=== PATIENT | male | born 2000 | race Caucasian/White ===

== ENCOUNTER 2025-04-10 17:47 | Emergency (ER) | payer OTHER ==
--- NOTE | 2025-04-10 17:53 | ERPHSYRPT ---
- History of Present Illness Time Seen by Provider: 04/10/25 17:52 Source: patient, family Exam Limitations: no limitations Physician History: This is a 24-year-old white male patient arrives by private vehicle and does not have a primary care provider with right foot injury that occurred prior to arrival. Patient is at work and using a heavy electric power mayelin when it hit the top of his right foot causing significant pain, swelling and bruising on the dorsal aspect. Method of Injury: direct blow Occurred: just prior to arrival Quality: aching, throbbing Severity of Pain-Max: moderate Severity of Pain-Current: moderate Lower Extremities Pain: foot: right (Dorsal aspect) Associated Symptoms: other (To bear weight) Travel Risk - International Travel Have you traveled outside of the country in past 3 weeks: No - Emerging Infectious Disease Are you exhibiting symptoms associated with any current EIDs: No - Review of Systems Constitutional: No Symptoms Eyes: No Symptoms Ears, Nose, & Throat: No Symptoms Respiratory: No Symptoms Cardiac: No Symptoms Abdominal/Gastrointestinal: No Symptoms Genitourinary Symptoms: No Symptoms Musculoskeletal: Injury (Dorsal aspect right foot) Skin: No Symptoms Neurological: No Symptoms Psychological: No Symptoms Endocrine: No Symptoms Hematologic/Lymphatic: No Symptoms Immunological/Allergic: No Symptoms All Other Systems: Reviewed and Negative - Past Medical History Pertinent Past Medical History: No - Nursing Vital Signs Nursing Vital Signs: Initial Vital Signs Temperature 97.0 F 04/10/25 17:57 Pulse Rate 74 04/10/25 17:57 Respiratory Rate 18 04/10/25 17:57 Blood Pressure 162/86 04/10/25 17:57 O2 Sat by Pulse Oximetry 99 04/10/25 17:57 Pain Scale Pain Intensity 7 - Physical Exam General Appearance: no apparent distress, alert, anxiety Eyes, Ears, Nose, Throat Exam: normal ENT inspection, moist mucous membranes Neck Exam: normal inspection, non-tender, supple, full range of motion Cardiovascular/Respiratory Exam: chest non-tender, no respiratory distress Gastrointestinal/Abdominal Exam: non-tender Back Exam: normal inspection, normal range of motion, No CVA tenderness, No vertebral tenderness Hips Exam: bilateral: non-tender, normal inspection, normal range of motion, no evidence of injury Legs Exam: bilateral leg: non-tender, normal inspection, normal range of motion, no evidence of injury Knees Exam: bilateral knee: non-tender, normal inspection, normal range of motion, no evidence of injury Ankle Exam: bilateral ankle: non-tender, normal inspection, normal range of motion, no evidence of injury Foot Exam: right foot: bone tenderness (Dorsal aspect), ecchymosis (Dorsal aspect), soft tissue tenderness (Dorsal aspect), swelling (Dorsal aspect), left foot: non-tender, normal inspection, normal range of motion, no evidence of injury Neuro/Tendon Exam: normal sensation, normal motor functions, normal tendon functions, no evidence tendon injury Mental Status Exam: alert, oriented x 3, cooperative Skin Exam: normal color, warm, dry SpO2 Interpretation: normal O2 Delivery: Room Air - Course Nursing assessment & vital signs reviewed: Yes Ordered Tests: Active Orders 24 hr Category Date Time Status Mak Bandage Application -[facility] STAT Care 04/10/25 18:17 Ordered Crutches STAT Care 04/10/25 18:17 Ordered FOOT (MINIMUM 3 VIEWS) Stat Exams 04/10/25 17:58 Taken Medication Summary Generic Name Dose Route Start Last Admin Trade Name Earline PRN Reason Stop Dose Admin Ibuprofen 600 mg 04/10/25 18:18 Ibuprofen 600 Mg Tablet PO 04/10/25 18:19 STAT ONE Oxycodone/Acetaminophen 1 tab 04/10/25 18:18 Oxycodone Hcl/Apap 5 Mg/325 Mg Tablet PO 04/10/25 18:19 STAT STA - Progress Progress: improved, pain not gone completely, re-examined Progress Note: 04/10/25 18:22 My medical decision making and the assignment of low complexity of this patient's medical issue today is based on review of the patient's past medical history, review of the patient's medication list, reviewed patient drug allergy list, history present illness and physical findings on examination. The workup in this patient included x-ray of the patient's right foot. Differential diagnosis includes but is not limited to contusion right foot, right foot sprain, fracture right foot, dislocation right foot I interpreted the preliminary x-ray report of the patient's right foot. I see no acute fracture or dislocation. There is evidence of dorsal aspect soft tissue swelling. Patient understands this is a preliminary report only Counseled pt/family regarding: diagnosis, need for follow-up, rad results Medical Desision Making - Diagnostic Testing Diagnostic test were ordered, analyzed, and reviewed by me: Yes Radiological Interpretation: Interpreted by me - Risk of complications Low Risk: Low risk of morbidity from additional dx testing or treatment - Departure Departure Disposition: Home Clinical Impression: Contusion of right foot Condition: Stable Critical Care Time: No Additional Instructions: Ice pack or ice bath 3 times a day for the next 72 hours. Weightbearing as tolerated. May use crutches as needed. Wear the Mak wrap for compression. Use your Percocet 5/325 as directions state. Add ibuprofen 600 mg orally 3 times a day with food for the next 5 days. After you complete your Percocet, you may then use Tylenol 650 mg orally 4 times a day. Call your primary care provider on 04/13/2025, to make arrangements for follow-up appointment for further evaluation and management. Your other option is to follow-up with [facility] charger operator helper, Dr. Guzmán. Call his office to make an appointment.
[2025-04-10 17:58] VITALS: RESP 18; TEMP 97; O2SAT 99
[2025-04-10] MEDS ORDERED: MOTRIN 600 MG ONE (18:23)
[2025-04-10] MEDS ORDERED: PERCOCET TABLET 5/325MG ONE ×2 (18:23→18:28)
[2025-04-10] MEDS: PERCOCET TABLET 5/325MG PO STA ×2 (18:25→18:29)
[2025-04-10] MEDS: MOTRIN 600 MG PO ONE (18:25)
[2025-04-10 18:37] VITALS: BP 150/72; PULSE 70
--- NOTE | 2025-04-10 21:25 | XRAY ---
Indication: Pain following injury with electric mayelin. Comparison: None 3 nonweightbearing views right foot demonstrates mild anterior soft tissue swelling and incidental tiny navicular accessory ossicle. No other bony, articular, or soft tissue abnormalities.
== END 2025-04-10 18:39 | disposition home or self-care (01) ==
LOC: ED 17:47
DX: S90.31XA Contusion of right foot, initial encounter (principal); W22.8XXA Striking against or struck by other objects, initial encounter; Y99.0 Civilian activity done for income or pay

== ENCOUNTER 2025-04-13 07:40 | Emergency (ER) | payer OTHER ==
[2025-04-13 07:59] VITALS: RESP 14; TEMP 97.7; O2SAT 98
--- NOTE | 2025-04-13 08:29 | ERPHSYRPT ---
- History of Present Illness Time Seen by Provider: 04/13/25 07:40 Source: patient Exam Limitations: no limitations Patient Subjective Stated Complaint: patient states that he was at work this past Sunday and dropped about 2000 pounds on his right foot, patient states he w as seen that day in the er; however, the pain has gotten worse and patient has not gotten any relief Triage Nursing Assessment: patient presents to ed via private vehicle, patient able to ambulate into ed with assistance of crutches, patient alert and oriented x 4, skin p/w/d, patient's right foot has moderate swelling and bruising, pedal pulse palpable, patient states pain to right foot is 8/10, patient unable to bear weight to right lower extremity, denies any other symptoms at this time, Physician History: Patient comes to the emergency room after he was seen on Sunday for a left foot injury patient had weight fall on his foot he has been using ice Tylenol but states that he is has some trouble walking on it had an x-ray done which was negative. States that he has trouble getting around due to the pain his foot is swollen Method of Injury: direct blow Allergies/Adverse Reactions: No Known Drug Allergies Allergy (Verified 04/13/25 07:50) Home Medications: No Reportable Medications [No Reported Medications] 04/10/25 [History] Hx Tetanus, Diphtheria Vaccination/Date Given: No Hx Influenza Vaccination/Date Given: No Hx Pneumococcal Vaccination/Date Given: No Travel Risk - International Travel Have you traveled outside of the country in past 3 weeks: No - Emerging Infectious Disease Are you exhibiting symptoms associated with any current EIDs: No - Review of Systems Constitutional: No Fever, No Chills Respiratory: No Cough, No Dyspnea Cardiac: No Chest Pain, No Edema, No Syncope Abdominal/Gastrointestinal: No Abdominal Pain, No Nausea, No Vomiting, No Diarrhea Musculoskeletal: Other (Foot pain) Neurological: No Dizziness, No Focal Weakness, No Sensory Changes - Past Medical History Pertinent Past Medical History: No - Past Surgical History Past Surgical History: Yes Gastrointestinal: Hernia Repair Other Surgical History: plastic surgery to face due to facial injury - Social History Smoking Status: Current every day smoker Exposure to second hand smoke: Yes Drug Use: none - Social Determinants of Health Will the patient participate in the screening: Declined to provide - Nursing Vital Signs Nursing Vital Signs: Initial Vital Signs Temperature 97.7 F 04/13/25 07:41 Pulse Rate 87 04/13/25 07:41 Respiratory Rate 14 04/13/25 07:41 Blood Pressure 129/96 04/13/25 07:41 O2 Sat by Pulse Oximetry 98 04/13/25 07:41 Pain Scale Pain Intensity 8 - Physical Exam General Appearance: alert Cardiovascular/Respiratory Exam: chest non-tender, normal breath sounds, regular rate/rhythm, no respiratory distress Gastrointestinal/Abdominal Exam: non-tender, guarding Foot Exam: left foot: pain, soft tissue tenderness, swelling Mental Status Exam: alert, oriented x 3 SpO2 Interpretation: normal SpO2: 98 O2 Delivery: Room Air - Progress Progress Note: 04/13/25 08:28 Patient's x-ray did not reveal any fractures that he had done on Sunday I will not be repeating that patient's pain symptomology is consistent with swelling and soft tissue contusion. At this time patient will be placed in a walking boot/surgical boot advised on continuing using the crutches and to follow-up with orthopedics or his primary care doctor to work on getting FMLA paperwork. Patient's physical exam is not consistent with compartment syndrome at this time this appears to be a superficial injury patient advised on conservative management with rest ice elevation. Patient is agreeable to the plan at this time does not require another x-ray - Departure Departure Disposition: Home Clinical Impression: Contusion of right foot Qualifiers: Encounter type: subsequent encounter Qualified Code(s): S90.31XD - Contusion of right foot, subsequent encounter Condition: Stable Critical Care Time: No Referrals: DOCTOR,NO FAMILY [Primary Care Provider, UNKNOWN] - Follow up/PCP as directed Instructions: Contusion (DC) Forms: Ortho Referral, Work/School Release Form
[2025-04-13 08:41] VITALS: BP 139/65; PULSE 74
== END 2025-04-13 08:41 | disposition home or self-care (01) ==
LOC: ED 07:40
DX: S90.31XA Contusion of right foot, initial encounter (principal); W22.8XXA Striking against or struck by other objects, initial encounter; Y99.0 Civilian activity done for income or pay; Z72.0 Tobacco use